=== PATIENT | male | born 1945 | race Caucasian/White ===

== ENCOUNTER 2023-06-08 20:38 | Emergency (ER) | payer MEDICARE, SELFPAY ==
[2023-06-08 20:51] VITALS: BP 118/60
[2023-06-08 21:05] LABS: % Basophils 1.3 % (0-2); % Eosinophils 5.2 % (0-6); % Immature Granulocytes 0.3 % (0-0.5); % Lymphocytes 23.2 % (20.5-51.1); % Monocytes 11.1 % (1.7-9.3); % Neutrophils 58.9 % (42.2-75.2); Absolute Basophils 0.1 10^3/uL (0-0.2); Absolute Eosinophils 0.3 10^3/uL (0-0.7); Absolute Lymphocytes 1.5 10^3/uL (1.2-3.4); Absolute Monocytes 0.7 10^3/uL (0.1-0.6); Absolute Neutrophils 3.8 10^3/uL (1.4-6.5); Hematocrit 44.3 % (39.0-52.0); Hemoglobin 15.6 g/dL (13.0-18.0); Mean Corp Hgb Conc. 35.2 g/dL (33.0-37.0); Mean Corpuscular Hgb 30.8 pg (27.0-31.0); Mean Corpuscular Volume 87.5 fL (80.0-94.0); Mean Platelet Volume 8.7 fL (7.4-10.4); Nucleated Red Blood Cells % 0 % (-); Platelet Count 302 10^3/uL (130-400); Red Blood Cell Count 5.06 10^6/uL (4.70-6.10); Red Cell Dist. Width 12.3 % (11.5-14.5); White Blood Cell Count 6.4 10^3/uL (4.8-10.8)
[2023-06-08 21:06] VITALS: BMI 25.8
[2023-06-08 21:19] LABS: ALT (SGPT) 41 U/L (0-50); AST (SGOT) 43 U/L (17-59); Alkaline Phosphatase 63 U/L (38-126); Blood Urea Nitrogen 26 mg/dl (9-20); Calcium 9.5 mg/dl (8.4-10.2); Carbon Dioxide 28 mmol/L (22-30); Estimated Creatinine Clearance 47 ml/min; Glucose 119 mg/dl (70-99); Total Bilirubin 0.9 mg/dl (0.2-1.3); Total Protein 6.6 g/dl (6.3-8.2); eGFR > 60.00
[2023-06-08 21:25] LABS: Chloride 101 mmol/L (98-107); Potassium 3.8 mmol/L (3.5-5.1); Sodium 135 mmol/L (135-145)
[2023-06-08 21:27] LABS: Troponin I < 0.012 ng/ml
[2023-06-08 21:29] LABS: APTT 22.6 Sec (23.4-35.0)
--- NOTE | 2023-06-08 21:49 | ED.GENMED ---
History of Present Illness
General
Chief Complaint: Dizziness
Source: patient and spouse
Time Seen by Provider: 06/08/23 21:00
Travel History
Have you had any contact with someone who has COVID-19?: No
Do you have any symptoms of coronavirus? Fever > 100 degrees, chills, cough, shortness of breath, sore throat, loss of taste or smell, muscle aches, or headache?: No
History of Present Illness
History of Present Illness:
This patient is a 77-year-old male who was feeling his usual self earlier today. He had a very large dinner described as 'too much' at a [employer] house and on the way home started noticed the gradual onset of epigastric discomfort that then
moved up to his chest associated with dizziness. He felt like he was going to pass out and started to get clammy. His symptoms got worse on the way here. Since arrival, patient feels significantly better and describes minimal chest discomfort
described as in his lower chest. He denies radiation, pleuritic nature, exacerbating relieving factors. He denies back pain, neck pain, headache, dizziness, leg swelling, lower abdominal pain, dyspnea, vomiting. He did feel nauseous earlier with
the symptoms. Patient has a longstanding history of vasovagal sympathy and states that the symptoms are very characteristic of prior episodes .
Past History
Past History
ED Past Medical History: Cancer (Prostate cancer), GERD, HTN, Hypercholesterolemia and Other (Peptic ulcer disease with bleeding 2001 r/t NSAID use)
ED Past Surgical History: Orthopedic (Knee surgery) and Urological (Prostate surgery April 2011)
Social History
Tobacco: Former smoker
Alcohol: None
Personal:
Living: with family
Employment: Employed
Family History
Family History: CAD and Cancer (Father with history of prostate cancer); Negative Early CAD
Phy Exam
Physical Exam
Physical Exam:
GENERAL: Alert , in no apparent distress
EYE: pupils equal and reactive
NECK: Supple, no significant adenopathy.
ENT: o/p clr, mmm.
CARDIAC: Regular rate and rhythm .
LUNGS: Clear breath sounds bilaterally, no acute respiratory distress, no wheezes/rales/rhonchi
ABDOMEN: Soft, without focal tenderness, no r/g, no cvat
NEUROLOGICAL: Alert and oriented, no focal neuro deficits
SKIN: Warm and dry, skin intact.
MUSCULOSKELETAL: No edema, well perfused.
PSYCH: Normal and appropriate interaction.
Course
Orders/Labs/Results
Orders:
Orders
06/08/23 20:41
ECG [Electrocardiogram (*1)] Urgent
Reason for Study: Chest Pain
EKG- Treatment ONCE
06/08/23 20:54
CR Chest Portable - 1 View Urgent
Comment:
Reason For Exam: dizziness
Reason Study Needs to be Portable: Patient Unstable
06/08/23 20:56
Complete Blood Count/With Diff Urgent
Comprehensive Metabolic Panel Urgent
PTT Urgent
Troponin I Urgent
06/08/23 21:49
US Abdomen Complete/Upper Urgent
Comment:
Reason For Exam: upper abd pain
06/08/23 23:33
Famotidine [Pepcid] 20 mg .ROUTE .STK-MED ONE
06/08/23 23:39
Famotidine [Pepcid] 20 mg IV NOW STA
06/09/23 00:05
Troponin I Urgent
Abnormal Lab Results
06/08/23
20:56
Absolute Monos (auto) 0.7 H 10^3/uL
(0.1-0.6)
Monocytes % 11.1 H %
(1.7-9.3)
APTT 22.6 L Sec
(23.4-35.0)
BUN 26 H mg/dl
(9-20)
Glucose 119 H mg/dl
(70-99)
06/08/23 20:56
06/08/23 20:56
Vital Signs
Initial and Last Documented VS:
Initial Vital Signs
Temp Pulse Resp BP Pulse Ox
98.3 F 48 18 118/60 95
06/08/23 20:51 06/08/23 20:51 06/08/23 20:51 06/08/23 20:51 06/08/23 20:51
Last Documented Vital Signs
Temp Pulse Resp BP Pulse Ox
98.3 F 50 18 118/60 98
06/08/23 20:51 06/08/23 21:15 06/08/23 20:51 06/08/23 20:51 06/08/23 21:15
*Critical Care Note
Total Time (30-74mins, 75-104mins- exclusive of procedures): Not Applicable
Update Note
Update Note:
Patient presents to the Emergency Department with ____chest pain
Number and Complexity of Problems Addressed at the Encounter
� Chronic conditions affecting care:
� Acute Exacerbation and/or Progression of Chronic Illness:
� Differential Diagnosis includes: But not limited to cholelithiasis, cholecystitis, ACS, vasovagal event, etc.
Amount and/or Complexity of Data to be Reviewed and Analyzed
� I performed an independent evaluation of and my interpretation is:
EKG: Read by me, sinus bradycardia, no acute ischemia, nonspecific T wave flattening
CT:
Xrays:
Laboratory Studies: Generally unremarkable
Other: Ultrasound consistent with cholelithiasis but not cholecystitis
� Review of other/old records reveals: March 2021 patient was admitted for syncope thought to be triggered by epigastric and chest pain, diagnosed with neurocardiogenic syncope, echo and stress echo negative at that time
� Clinical information was obtained by an independent historian: who is at bedside, states patient is always bradycardic
� Prescriptions/Medications Considered but not given:
� Further testing considered but not performed:
Risk of Complications and/or Morbidity or Mortality of Patient Management
� Social determinants of health affecting care:
� Discussion with other providers (PCP, Hospitalists, Consultants, etc):
� Escalation of care including admission/observation vs risk of discharge considered: 9:53 PM patient extremely well-appearing, making jokes, no symptoms.
12:59 AM patient was complaining of burning discomfort now resolved. No abdominal tenderness to palpation. Walks to bathroom easily. Discussed with him his finding of cholelithiasis and symptoms related to that. I strongly suspect that after the
large meal that he had, patient had an episode of biliary colic which triggered his neurocardiogenic mediated near syncope. Patient denies any complaints at this time, is aware the importance of follow-up and reasons return the emergency department.
ED Attending Note
-
Portions of this chart may have been created with voice recognition software.� Occasional wrong word or��sound alike� substitutions may have occurred due to the inherent limitations of voice recognition software.
Discharge Plan
Departure
Patient Disposition: Home (Routine Discharge)
Date of Disposition: 06/09/23
Time of Disposition: 01:00
Patient with high blood pressure during this ER visit?: No
Condition: Good
Discharge Problem:
Cholelithiasis, Chest pain, Near syncope
Instructions: Gallstones, Chest Pain, Near Fainting
Prescriptions:
No Action
rosuvastatin 10 MG tablet
20 mg PO HS
Patient Comments:
IN PM
lisinopril 10 MG tablet
10 mg PO HS Qty: 0 0RF
Referrals:
Pato Garcia PA-C [Family Provider] -
Ignacio Garibay MD [Active] - Next open appointment
Activity Restrictions/Additional Instructions:
IF YOU DEVELOP FEVER, VOMITING, CHEST PAIN, TROUBLE BREATHING, ABDOMINAL PAIN, DIZZINESS, OR OTHER WORRISOME SIGNS, GO TO THE ER IMMEDIATELy!
Interventions
Interventions:
*Risk Screen - Suicide Last Done: 06/08/23 20:51
*General Assessment Last Done: 06/08/23 20:51
*Neglect/Abuse Screening Last Done: 06/08/23 20:51
ED- Fall Risk Assessment Last Done: 06/08/23 21:05
*ED COVID-19 Vaccine History Last Done: 06/08/23 21:05
ED- Neurological Assessment Last Done: 06/08/23 21:05
ED- Cardiac Assessment Last Done: 06/08/23 21:05
ED Swallowing Screen Last Done: 06/08/23 21:05
[2023-06-08 22:00] VITALS: BP 155/69
[2023-06-08 23:06] VITALS: BP 151/70
[2023-06-08] MEDS: PEPCID 20 MG IV (23:39)
[2023-06-09] VITALS: BP 161/75
[2023-06-09 00:49] LABS: Troponin I < 0.012 ng/ml
[2023-06-09 01:00] VITALS: BP 160/71
== END 2023-06-09 01:30 | disposition home or self-care (01) ==
LOC: EMR 20:38
PROVIDERS: Emergency Medicine; EMERGENCY PHYSICIAN Emergency Medicine; FAMILY PHYSICIAN Physician Assistant Medical
DX: R07.89 Other chest pain (principal); R55 Syncope and collapse; K80.20 Calculus of gallbladder without cholecystitis without obstruction
CPT/HCPCS: 99285; 96374; 71045; 76700; 80053; 84484; 85025; 85730; 93005

== ENCOUNTER → 2023-08-05 13:15 | Outpatient (REF) | payer MEDICARE, SELFPAY | LOC: RAD 13:15 | PROVIDERS: ATTENDING PHYSICIAN Physician Assistant Medical | DX: R19.09 Other intra-abdominal and pelvic swelling, mass and lump (principal) | CPT/HCPCS: 76882 ==

== ENCOUNTER 2023-10-24 06:26 | Day surgery (SDC) | payer MEDICARE, SELFPAY ==
[2023-10-12 07:37] VITALS: BMI 26.0
[2023-10-12 09:00] LABS: Hematocrit 43.7 % (39.0-52.0); Hemoglobin 15.2 g/dL (13.0-18.0); Mean Corp Hgb Conc. 34.8 g/dL (33.0-37.0); Mean Corpuscular Hgb 30.7 pg (27.0-31.0); Mean Corpuscular Volume 88.3 fL (80.0-94.0); Mean Platelet Volume 8.9 fL (7.4-10.4); Platelet Count 254 10^3/uL (130-400); Red Blood Cell Count 4.95 10^6/uL (4.70-6.10); Red Cell Dist. Width 12.5 % (11.5-14.5); White Blood Cell Count 4.2 10^3/uL (4.8-10.8)
[2023-10-12 09:24] LABS: Blood Urea Nitrogen 19 mg/dl (9-20); Carbon Dioxide 25 mmol/L (22-30); Estimated Creatinine Clearance 65 ml/min; Potassium 4.5 mmol/L (3.5-5.1); eGFR > 60.00
[2023-10-12 09:33] LABS: Calcium 9.1 mg/dl (8.4-10.2); Chloride 106 mmol/L (98-107); Glucose 92 mg/dl (70-99); Sodium 138 mmol/L (135-145)
[2023-10-24 06:20] VITALS: BP 182/85
[2023-10-24 06:30] VITALS: BMI 26.0
[2023-10-24] MEDS: TYLENOL 1000 MG PO (06:37)
[2023-10-24] MEDS: NORMOSOL-R 1000 IV (07:08)
--- NOTE | 2023-10-24 07:10 | W.SUR.PREOP ---
Pre-Operative Surgical Note
-
I have examined this patient prior to the performance of the scheduled procedure.
The patient's condition is unchanged from the time of the current History and
Physical and the patient is able to undergo the scheduled procedure.
--- NOTE | 2023-10-24 09:11 | W.IMMPOSTOP ---
Addendum entered and electronically signed by Ignacio Garibay MD 10/24/23 09:24:
#[id number]
The assistance of Garima Tse PA-c was required due to the complexity of the procedure. During the procedure Garima Tse PA-C assisted with port placement, robotic instrumentation and suture material exchanges, and closure of the surgical
incision sites. I was present for the entirety of the operative procedure.
Original Note:
Surgical Immed Post Op Note
-
Primary Surgeon: Lani
Assisting Surgeon: Dedrick Franco
Pre-op Diagnosis: Right inguinal hernia
Post-op Diagnosis: Right inguinal hernia�indirect
Procedure Performed: Robotic assisted laparoscopic GREGOR repair right inguinal hernia with mesh; 3D max large mid weight
Anesthesia Type: GETA +0.25% Marcaine
Specimen / Cultures: None
Estimated Blood Loss: 6 mL
Complications: None immediate
Operative Findings: Right indirect inguinal hernia. Moderate scarring from history of robotic prostatectomy but not excessive. No cord lipoma. 3D max large mid weight mesh repair secured to Alfa's with 2-0 Vicryl.
[2023-10-24 09:15] VITALS: BP 182/85
[2023-10-24 10:20] VITALS: BP 127/77
[2023-10-24 10:50] VITALS: BP 117/59
[2023-10-24] MEDS: MOTRIN 600 MG PO (10:58)
[2023-10-24 11:15] VITALS: BP 124/67
== END 2023-10-24 11:20 | disposition home or self-care (01) ==
LOC: SDS 06:26
PROVIDERS: ATTENDING PHYSICIAN Surgery; FAMILY PHYSICIAN Physician Assistant Medical
DX: K40.90 Unilateral inguinal hernia, without obstruction or gangrene, not specified as recurrent (principal)
CPT/HCPCS: 49650; 36415; 80048; 85027; 93005; C1781

== ENCOUNTER → 2023-12-19 06:29 | Day surgery (SDC) | payer MEDICARE, SELFPAY | LOC: GI 06:29 | PROVIDERS: ATTENDING PHYSICIAN Internal Medicine | DX: Z12.11 Encounter for screening for malignant neoplasm of colon (principal); K64.8 Other hemorrhoids; K57.30 Diverticulosis of large intestine without perforation or abscess without bleeding; D12.5 Benign neoplasm of sigmoid colon; D12.0 Benign neoplasm of cecum; D12.4 Benign neoplasm of descending colon; D12.8 Benign neoplasm of rectum; R13.10 Dysphagia, unspecified; K44.9 Diaphragmatic hernia without obstruction or gangrene; K21.01 Gastro-esophageal reflux disease with esophagitis, with bleeding; K31.89 Other diseases of stomach and duodenum; R12 Heartburn; Z86.010 Personal history of colon polyps | CPT/HCPCS: 45385; 45380; 43239; 88305; 88312; 88342 ==

== ENCOUNTER → 2024-03-22 06:25 | Day surgery (SDC) | payer MEDICARE, SELFPAY | LOC: GI 06:25 | PROVIDERS: ATTENDING PHYSICIAN Internal Medicine | DX: K20.90 Esophagitis, unspecified without bleeding (principal); K22.89 Other specified disease of esophagus; K44.9 Diaphragmatic hernia without obstruction or gangrene | CPT/HCPCS: 43239; 88305 ==

== ENCOUNTER → 2024-09-05 07:37 | Outpatient (REF) | payer MEDICARE, SELFPAY | LOC: RAD 07:37 | PROVIDERS: ATTENDING PHYSICIAN Physician Assistant Medical | DX: M79.672 Pain in left foot (principal); M25.531 Pain in right wrist | CPT/HCPCS: 73110; 73630 ==

== ENCOUNTER 2025-05-01 11:44 | Emergency (ER) | payer MEDICARE, SELFPAY ==
[2025-05-01 11:54] VITALS: BP 179/78
[2025-05-01 12:19] LABS: Hematocrit 43.3 % (39.0-52.0); Hemoglobin 14.6 g/dL (13.0-18.0); Mean Corp Hgb Conc. 33.7 g/dL (33.0-37.0); Mean Corpuscular Volume 91.4 fL (80.0-94.0); Nucleated Red Blood Cells % 0 % (-); Platelet Count 257 10^3/uL (130-400); Red Cell Dist. Width 12.9 % (11.5-14.5)
--- NOTE | 2025-05-01 12:33 | ED.GENMED ---
History of Present Illness
General
Chief Complaint: Chest Pain
Time Seen by Provider: 05/01/25 12:33
History of Present Illness
History of Present Illness:
FOCUSED PAST MEDICAL HISTORY
- High blood pressure, GERD, prostate cancer
REVIEW OF OLD RECORDS
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
Note:
CHIEF COMPLAINT(S)
Left-sided chest pain.
HISTORY OF PRESENT ILLNESS
The patient is a 79-year-old male who presented with pain localized beneath the left breast, in the intercostal or rib muscle area. He reports that the pain began a couple of hours prior to presentation, around 5 PM. He describes the discomfort as
pressure that becomes noticeable mainly when walking. This pain does not increase with touch, except when specific pressure is applied in the area between the ribs. The patient denied any significant pain during exertion, specifically after
performing push-ups the previous day, which is not a regular activity for him.
He rates the discomfort at a 3 out of 10 on the pain scale when performing certain movements like twisting his torso but does not feel the pain when at rest. He has not experienced any associated symptoms such as dyspnea, sweating, or syncope.
However, he mentions a past medical history of vasovagal syncope, with an episode leading to an emergency call where his heart rate dropped to the 20s, and he nearly required defibrillation. His usual blood pressure is in the range of 120s/60-72,
but today it elevated to 165, which he notes with concern.
The electrocardiogram done today shows a heart rate in the 40s, noted as similar to his past results without indication of acute ischemia. He is not currently experiencing any distressing symptoms and feels fine when sitting. The concern remains for
potential cardiac issues, given his past history of syncope and slow heart rate.
PHYSICAL EXAM
- General: Well appearing in no distress
- HEENT: Moist oral mucosa
- Cardiovascular: No murmurs, bradycardic heart rate, regular rhythm, No significant chest wall tenderness
- Pulmonary: No respiratory distress, breath sounds are clear and equal
- Abdomen: Soft with no peritoneal signs, no tenderness
- Neurologic: Excellent strength all extremities, no coordination deficits
- Psychiatric: Appropriate mental status, normal insight and judgement
- Extremities: Nontender, no edema, moves all extremities equally
- Skin: No rash, no lesions
PLAN
1. Repeat cardiac blood work, particularly troponin levels, to monitor for any cardiac ischemia.
2. Order a chest X-ray to evaluate for any underlying pulmonary issues.
3. Consider anti-inflammatory medication for pain relief if necessary.
4. Monitor blood pressure and heart rate for changes or abnormalities.
5. Follow-up with repeat examination and review of diagnostic test results for further evaluation and management.
DIFFERENTIAL DIAGNOSIS
The Differential Diagnosis includes, in no particular order and is not limited to:
1. Costochondritis
2. Muscle strain
3. Rib fracture
4. Myocardial infarction
5. Gastroesophageal reflux disease
6. Pulmonary embolism
7. Pneumothorax
8. Pericarditis
9. Aortic dissection
10. Anxiety or panic attack.
RADIOLOGY
- Chest x-ray unremarkable
EKG
- Sinus 46, left axis deviation, no acute ST abnormality, no significant change from 10/12/2023 (was also bradycardic then)
LABS
- CBC normal, initial troponin less than 0.012
SUMMARY OF ENCOUNTER
The patient, a 79-year-old male, presented to the emergency department with left-sided chest pain under the left breast in the intercostal or rib muscle area. The pain reportedly began two hours prior to the visit, primarily noticeable when walking,
and was rated 3 out of 10 on the pain scale. The patients history includes vasovagal syncope, previously leading to a critical drop in heart rate. During this visit, the patients ECG showed a heart rate in the 40s, similar to prior results and
without acute ischemia. Cardiac blood work, including troponin levels, was repeated and was unremarkable, indicating no recent myocardial infarction. A chest X-ray suggested possible emphysema, noted by the radiologist as resembling COPD, although
the provider found no significant concerns indicative of pneumothorax or other alarming findings. The patient denied respiratory distress and had normal alpha-1 levels.
DISPOSITION
Discharge
ASSESSMENT
The patient presented with symptoms consistent with costochondritis or muscle strain between the ribs, possibly aggravated by recent physical activity involving push-ups. No ischemic heart disease was evidenced by normal cardiac biomarkers and ECG
findings.
PLAN
1. Discharge with outpatient follow-up instructions.
2. Notify the patients director of front office automatically through the discharge paperwork to ensure timely follow-up.
3. Advise patient to follow up with director of front office if not contacted by Tuesday.
INDEPENDENT REVIEW OF LABS AND INTERPRETATION OF TESTS
- My independent review of the ECG showed a heart rate in the 40s without indication of heart block or acute ischemia.
- My independent interpretation of cardiac blood work indicates normal troponin levels, arguing against myocardial infarction.
- My independent interpretation of the chest X-ray was that it did not confirm significant findings of COPD or emphysema as suggested by the radiologist.
PATIENT EDUCATION AND COUNSELING
Patient was informed of the normal cardiac tests and findings, reassurance given regarding the slow heart rate typical for his age and athletic background, and educated on the possibility of muscle strain as the cause of chest pain. The patient was
advised on when to seek further medical attention.
FOLLOW-UP INSTRUCTIONS
Follow up with director of front office, Dr. Radha Cr, should occur automatically through discharge notification. Patient advised to contact the cardiologists office if not reached by Tuesday.
MEDICATION RECONCILIATION
No new medications were prescribed at this time.
MEDICAL DECISION MAKING
- Number and Complexity of Problems Addressed: Chronic conditions affecting care include a history of vasovagal syncope and possible COPD. Differential diagnosis includes costochondritis, muscle strain, myocardial infarction, among others.
- Data:
- Category 1: ECG and cardiac blood tests independently reviewed.
- Category 2: None mentioned.
- Category 3: None mentioned.
- Risk: Consideration of Admission/Observation: Escalation of care including admission/observation was considered given the complexity and risk of the patients presenting complaint, exam findings, and underlying comorbidities. However, I feel the
patient is safe for outpatient management with close follow-up. Reasoning: Work-up reassuring, does not reveal any acute life/organ threatening processes, patients symptoms well controlled upon reevaluation, reexamination is reassuring, vitals are
stable, patient agreeable with discharge, and is reliable for follow-up.
DIAGNOSIS
- Chest Pain, Unspecified (R07.9)
- Possible costochondritis or muscle strain (M94.9)
UPDATE
- 2 troponins and EKGs unremarkable
- Very well-appearing on reassessment
- To follow-up with Dr. Cr as an outpatient
Past History
Past History
ED Past Medical History: Cancer (Prostate cancer), GERD, HTN, Hypercholesterolemia and Other (Peptic ulcer disease with bleeding 2002 r/t NSAID use)
ED Past Surgical History: Orthopedic (Knee surgery) and Urological (Prostate surgery April 2011)
Social History
Tobacco: Former smoker
Alcohol: None
Personal:
Living: with family
Employment: Employed
Family History
Family History: CAD and Cancer (Father with history of prostate cancer); Negative Early CAD
Phy Exam
Physical Exam
Physical Exam:
See HPI
Scores
Heart Score for Chest Pain Patients
STEMI patient?: Not applicable
Course
Orders/Labs/Results
Orders:
Orders
05/01/25 11:48
Electrocardiogram (*1) Urgent
Reason for Study: Chest Pain
EKG- Treatment ONCE
05/01/25 12:06
Complete Blood Count/No Diff Urgent
Complete Blood Count/With Diff Urgent
Troponin I Urgent
05/01/25 12:45
EKG- Treatment ONCE
05/01/25 12:46
CR Chest - 2 Views Urgent
Comment:
Reason For Exam: L ACW pain
05/01/25 14:19
Basic Metabolic Panel Urgent
Troponin I Urgent
05/01/25 14:30
Electrocardiogram (*1) Urgent
Reason for Study: Chest Pain
Abnormal Lab Results
05/01/25 05/01/25
12:06 14:19
Absolute Lymphs (auto) 0.8 L 10^3/uL
(1.2-3.4)
Neutrophils % 75.8 H %
(42.2-75.2)
Lymphocytes % 11.5 L %
(20.5-51.1)
Sodium 134 L mmol/L
(135-145)
05/01/25 12:06
05/01/25 14:19
Vital Signs
Initial and Last Documented VS:
Initial Vital Signs
Temp Pulse Resp BP Pulse Ox
36.4 C 49 16 179/78 98
05/01/25 11:54 05/01/25 11:54 05/01/25 11:54 05/01/25 11:54 05/01/25 11:54
Last Documented Vital Signs
Temp Pulse Resp BP Pulse Ox
36.4 C 44 20 133/78 97
05/01/25 11:54 05/01/25 14:19 05/01/25 14:19 05/01/25 14:19 05/01/25 14:19
*Pulse Oximetry
SaO2: 98
Oxygen Mode of Delivery: Room air
Patient hypoxic: no
*Critical Care Note
Total Time (30-74mins, 75-104mins- exclusive of procedures): Not Applicable
ED Attending Note
-
Portions of this chart may have been created with voice recognition software.� Occasional wrong word or��sound alike� substitutions may have occurred due to the inherent limitations of voice recognition software.
Discharge Plan
Departure
Prescriptions:
No Action
lisinopril 10 MG tablet
10 mg PO HS Qty: 0 0RF
rosuvastatin 20 mg Tablet
20 mg PO HS
prednisolone acetate (PF) 1 % Drops,Suspension
1 drp LEFT EYE BID
prednisolone acetate (PF) 1 % Drops,Suspension
1 drp RIGHT EYE HS
tadalafil [Cialis] 5 mg Tablet
5 mg PO DAILY PRN (Reason: ED)
acetaminophen [Tylenol Extra Strength] 500 mg tablet
1,000 mg PO Q6HPRN PRN (Reason: mild pain) Qty: 1 0RF
ibuprofen 200 mg tablet
400 - 600 mg PO Q6HPRN PRN (Reason: moderate pain) Qty: 1 0RF
polyethylene glycol 3350 [Miralax] 17 gram/dose powder
4 g PO DAILY PRN (Reason: Constipation) Qty: 119 0RF
Rx Instructions:
start a laxative such as MIRALAX on day 2 after surgery if no bowel movement yet as long as no nausea/vomiting and passing gas
oxycodone 5 mg tablet
5 mg PO Q4HPRN PRN (Reason: breakthrough/severe pain) Qty: 7 0RF
Referrals:
Pato Garcia PA-C [Family Provider, Family Practice]
Interventions
Interventions:
*General Assessment Last Done: 05/01/25 12:46
*Neglect/Abuse Screening Last Done: 05/01/25 11:54
*ED COVID-19 Vaccine History Last Done: 05/01/25 12:46
*ED Influenza Vaccine History Last Done: 05/01/25 12:46
*Risk Screen - Suicide (C-SSRS) Last Done: 05/01/25 11:54
ED- Cardiac Assessment Last Done: 05/01/25 12:46
Discharge Date and Time
Print Language: ITALIAN
[2025-05-01 12:46] VITALS: BP 151/60; BMI 27.5
[2025-05-01 12:55] LABS: Troponin I < 0.012 ng/ml
[2025-05-01 14:19] VITALS: BP 133/78
[2025-05-01 14:45] LABS: Blood Urea Nitrogen 13 mg/dl (9-20); Calcium 8.7 mg/dl (8.4-10.2); Carbon Dioxide 28 mmol/L (22-30); Chloride 104 mmol/L (98-107); Estimated Creatinine Clearance 51 ml/min; Glucose 84 mg/dl (70-99); Potassium 4.6 mmol/L (3.5-5.1); Sodium 134 mmol/L (135-145); eGFR > 60.00
[2025-05-01 14:49] LABS: Troponin I < 0.012 ng/ml
[2025-05-01 15:30] VITALS: BP 152/85
== END 2025-05-01 15:40 | disposition home or self-care (01) ==
LOC: EMR 11:44
PROVIDERS: Student in an Organized Health Care Education/Training Program; EMERGENCY PHYSICIAN Emergency Medicine; FAMILY PHYSICIAN Physician Assistant Medical
DX: R07.89 Other chest pain (principal); K21.9 Gastro-esophageal reflux disease without esophagitis; E78.00 Pure hypercholesterolemia, unspecified; I10 Essential (primary) hypertension; K22.70 Barrett's esophagus without dysplasia; Z80.9 Family history of malignant neoplasm, unspecified; Z82.49 Family history of ischemic heart disease and other diseases of the circulatory system; Z87.11 Personal history of peptic ulcer disease; Z87.891 Personal history of nicotine dependence
CPT/HCPCS: 99283; 71046; 80048; 84484; 85025; 85027; 93005